=== PATIENT | female | born 1955 ===

== ENCOUNTER 2018-12-17 13:40 | Outpatient (CLI) | payer MEDICARE, BC | END 2018-12-17 13:41 | disposition home or self-care (01) | LOC: RAD 13:40 | DX: M25.561 Pain in right knee (principal) ==

== ENCOUNTER 2019-01-05 12:14 | Outpatient (CLI) | payer MEDICARE, BC | END 2019-01-05 12:15 | disposition home or self-care (01) | LOC: RAD 12:14 ==